=== PATIENT | male | born 1950 | race Caucasian/White ===

== ENCOUNTER 2021-12-27 12:44 | Emergency (ER) | payer MEDICARE ==
[2021-12-27 13:29] VITALS: RESP 16
--- NOTE | 2021-12-27 14:17 | CT ---
EXAMINATION TYPE: CT brain cspine wo con DATE OF EXAM: 12/27/2021 COMPARISON: None HISTORY: Fall, abrasion left forehead CT DLP: 1527.1 mGycm Automated exposure control for dose reduction was used. Images of the brain and cervical spine obtained without contrast. There is cerebral cortical atrophy. There is no mass effect or midline shift. There is no sign of int racranial hemorrhage. The calvarium is intact. There is normal aeration of the mastoid sinuses. Cervical vertebra have normal alignment. There is some degenerative disc space narrowing from C3 to C 6 with spurring of the endplates. Facet joints are intact. There is minimal facet arthropathy. Prever tebral soft tissues are intact. IMPRESSION: Spondylotic changes in the cervical spine. No fracture. Cerebral atrophy. No acute intracranial abnormality.
[2021-12-27] MEDS ORDERED: BACITRACIN OINT 1 EACH PACKET TOPICAL ONE (15:42)
--- NOTE | 2021-12-27 15:54 | ED ---
Fall HPI - General Chief Complaint: Fall Stated Complaint: Fall,Head Injury Time Seen by Provider: 12/27/21 15:42 Source: patient, family, RN notes reviewed, old records reviewed Mode of arrival: ambulatory Limitations: no limitations - History of Present Illness Initial Comments: Patient is a 71-year-old male with history of hypertension, prostate disorder, presenting to the emergency Department with complaints of a trip and fall to Ground prior to arrival. Patient states he was putting things into a camper, had his hands folded when he just slipped and fell forward. His head hit the camper. There was no loss of consciousness, he is not on blood thinners. Patient went to an urgent care who sent him in for further evaluation. Patient has a very mild headache but no other symptoms. Denies any dizziness or lightheadedness, no blurry vision. Has a neck pain, no Ismael pain, nausea or vomiting. He has a further complaints. - Related Data Allergies Allergy/AdvReac Type Severity Reaction Status Date / Time No Known Allergies Allergy Verified 12/27/21 13:29 Review of Systems ROS Statement: Those systems with pertinent positive or pertinent negative responses have been documented in the HPI. ROS Other: All systems not noted in ROS Statement are negative. Past Medical History Past Medical History: Hypertension, Prostate Disorder History of Any Multi-Drug Resistant Organisms: None Reported Past Surgical History: Appendectomy, Cholecystectomy, Orthopedic Surgery Past Psychological History: No Psychological Hx Reported Smoking Status: Former smoker Past Alcohol Use History: Occasional Past Drug Use History: None Reported General Exam - General Exam Comments Initial Comments: GENERAL: Patient is well-developed and well-nourished. Patient is nontoxic and in no acute distress. HEAD: Atraumatic, normocephalic. No hematoma, he does have a moderate-sized abrasion to the left forehead. EYES: Pupils equal round and reactive to light, extraocular movements intact, sclera anicteric, conjunctiva are normal. Eyelids were unremarkable. ENT: Nares patent, oropharynx clear without exudates. Moist mucous membranes. NECK: Normal range of motion, supple without lymphadenopathy or JVD. LUNGS: Unlabored respirations. Breath sounds clear to auscultation bilaterally and equal. No wheezes rales or rhonchi. HEART: Regular rate and rhythm without murmurs, rubs or gallops. ABDOMEN: Soft, nontender, normoactive bowel sounds. No guarding, no rebound. No masses appreciated. MUSCULOSKELETAL: Normal extremities with adequate strength and normal range of motion, no pitting or edema. No clubbing or cyanosis. NEUROLOGICAL: Patient is alert and oriented x 3. Motor and sensory are also intact. Cranial nerves II through XII grossly intact. Symmetrical smile. Normal speech, normal gait. PSYCH: Normal mood, normal affect. SKIN: Warm, Dry, normal turgor, no rashes. Patient has about a 3 x 3 cm of a superficial abrasion to left forehead. Very mild bruising present but no active bleeding. Limitations: no limitations Course Vital Signs 12/27/21 12/27/21 13:26 16:03 Temperature 97.8 F 98.2 F Pulse Rate 65 78 Respiratory 16 16 Rate Blood Pressure 147/80 128/78 O2 Sat by Pulse 98 98 Oximetry Medical Decision Making - Medical Decision Making Patient is a 71-year-old male here after he tripped and fell at a campground prior to arrival. He did hit his head has an abrasion to left forehead. No loss conscious, no blood thinners. Tetanus is up-to-date. CT of the brain and C-spine showing no acute abnormality. Patient's wound was cleaned, bandaged. Patient stable for discharge. Return parameters were discussed with him and his daughter. They verbalized understanding. Disposition Clinical Impression: Fall, Forehead abrasion Disposition: HOME SELF-CARE Condition: Stable Instructions (If sedation given, give patient instructions): Abrasion (ED) Additional Instructions: Return to ER for any worsening symptoms as discussed. Okay for motrin or tylenol for headache. Is patient prescribed a controlled substance at d/c from ED?: No Referrals: Grant Brown MD [Primary Care Provider] - 1-2 days Time of Disposition: 15:54
[2021-12-27 16:07] VITALS: BP 128/78; PULSE 78; TEMP 98.2
== END 2021-12-27 16:03 | disposition home or self-care (01) ==
LOC: EC 12:44
DX: S00.81XA Abrasion of other part of head, initial encounter (principal); I10 Essential (primary) hypertension; Z87.891 Personal history of nicotine dependence; W01.0XXA Fall on same level from slipping, tripping and stumbling without subsequent striking against object, initial encounter
CPT/HCPCS: 70450; 72125